=== PATIENT | female | born 2000 | race Asian ===

== ENCOUNTER 2019-05-15 08:33 | Emergency (ER) | payer BC ==
[~2019-05-15] VITALS: Ht 154.9 cm; Wt 57.3 kg
[2019-05-15] MEDS ORDERED: ONDANSETRON HCL INJ 2MG/ML 2ML 2 MG/ML VIAL IV STA (09:06)
[2019-05-15] MEDS ORDERED: MORPHINE SULFATE 2 MG/ML SYR 1ML IV STA (09:06)
[2019-05-15] MEDS ORDERED: SODIUM CHLORIDE 0.9% 1000ML 1,000 ML IV SCH ×2 (09:15)
[2019-05-15] MEDS ORDERED: MORPHINE SULFATE INJ 4 MG/ML INJ 1ML ONE ×2 (09:49→11:36)
[2019-05-15] MEDS ORDERED: MORPHINE SULFATE INJ 4 MG/ML INJ 1ML IV STA (09:50)
--- NOTE | 2019-05-15 10:43 | Diagnostic Imaging Report ---
EXAM: US GALL BLADDER-HOPD DATE: 05/15/2019 12:00 AM INDICATION: Abdominal pain COMPARISON: None FINDINGS: The pancreas is not well-visualized secondary to prominent adjacent bowel gas. The visualized portion appears unremarkable. The liver is normal in size measuring 12.0 cm in length. Hepatic echogenicity is within normal limits. No focal hepatic mass is identified. The main portal vein is patent with antegrade flow. Biliary sludge noted within the gallbladder. There is no evidence for shadowing stones, wall thickening, pericholecystic fluid. There is no intra or extra hepatic biliary ductal dilatation. The common bile duct measures 4 mm. Sonographic Yates's sign is negative. The right kidney is normal in size measuring 10.7 cm in length with normal cortical thickness and echogenicity. There is no evidence for solid renal mass, hydronephrosis, or shadowing likely within the right kidney. The visualized portions the IVC and aorta are within normal limits. There is no ascites visualized. IMPRESSION: Biliary sludge noted within the gallbladder. No evidence for cholelithiasis or sonographic evidence for acute cholecystitis. Signed by: Dr. Kush Campos MD on 05/15/2019 10:40 AM
[2019-05-15] MEDS ORDERED: SODIUM CHLORIDE 0.9% 50ML 50 ML ONE ×2 (10:50→11:36)
[2019-05-15] MEDS ORDERED: DIATRIZOATE MEGL/DIATRIZOA SOD 30 ML BTL PO ONE (10:51)
[2019-05-15] MEDS ORDERED: IOPAMIDOL 370 MG/ML 200 ML INFUS..BTL INJ ONE (10:51)
[2019-05-15] MEDS ORDERED: PROMETHAZINE HC25 M1 PO (11:34)
[2019-05-15] MEDS ORDERED: ZOFRAN4 MG PO (11:34)
[2019-05-15] MEDS ORDERED: OMEPRAZOLE40 MG PO (11:34)
[2019-05-15] MEDS ORDERED: PROMETHAZINE HCL (IM) 25 MG/ML VIAL ONE (11:35)
[2019-05-15] MEDS ORDERED: PROMETHAZINE 25MG/ NS 50ML (IV) IV ONE (11:45)
--- NOTE | 2019-05-15 12:14 | Diagnostic Imaging Report ---
CT of the abdomen and pelvis, with contrast. History: Abdominal pain. Comparison: Right upper quadrant ultrasound from earlier 05/15/2019. Technique: Multidetector CT scanning of the abdomen and pelvis was performed from the level of the lung bases to the inferior pubic rami after intravenous and oral administration of contrast. Coronal and sagittal multiplanar reformations were obtained. RADIATION DOSE: Total DLP: 400.69 mGy*cm Dose modulation, iterative reconstruction, and/or weight based adjustment of the mA/kV was utilized to reduce the radiation dose to as low as reasonably achievable. FINDINGS: The lung bases are clear. The imaged portion of the heart demonstrates no significant abnormalities. The liver is normal in size and attenuation without evidence for focal abnormality. The gallbladder is unremarkable. There is no evidence for radiopaque stones, wall thickening, or pericholecystic fluid. There is no biliary ductal dilatation. The spleen, pancreas, and bilateral adrenal glands are unremarkable. The kidneys are normal in size and location and enhance symmetrically. There is no evidence for hydronephrosis. The ureters are normal course and caliber. The urinary bladder demonstrates no significant abnormalities. The uterus and adnexa are grossly unremarkable. There is mild circumferential wall thickening of the pylorus/proximal duodenum without evidence for significant adjacent inflammatory change. Contrast material readily passes into the small bowel without evidence for obstruction. The visualized loops of small and large bowel demonstrate no evidence of obstruction or inflammation. The appendix is visualized and appears unremarkable. There is no ascites or intraperitoneal free air. No abnormally enlarged lymph nodes are identified within the abdomen or pelvis. The osseous structures demonstrate no evidence for acute fracture or destructive process. The extraperitoneal soft tissues are unremarkable. IMPRESSION: Mild wall thickening noted of the distal stomach at the level of the pylorus/proximal duodenum. Findings are nonspecific and may reflect normal peristalsis or can be seen in the setting of gastritis/enteritis. No other acute abdominopelvic process identified. Signed by: Dr. Kush Campos MD on 05/15/2019 12:11 PM
[2019-05-15 12:44] VITALS: BP 111/72
== END 2019-05-15 12:55 | disposition home or self-care (01) ==
LOC: FSED 08:33
DX: R10.13 Epigastric pain (principal); R11.2 Nausea with vomiting, unspecified; R19.7 Diarrhea, unspecified; E86.0 Dehydration
CPT/HCPCS: 36415; 74177; 76705; 80053; 81003; 81025; 83690; 85025; 96374; 96375; 99284; J2270; J2405; J2550; J7030; Q9967